=== PATIENT | female | born 1965 | race Caucasian/White ===

== ENCOUNTER 2017-09-22 08:37 | Day surgery (SDC) | payer OTHER ==
[~2017-09-22 08:37] MED LIST: CEFAZOLIN 1 GM INJ; EPHEDrine SULFATE 50 MG/5 ML SYG
[2017-09-22] MEDS ORDERED: MIDAZOLAM 1 MG/ML 2 ML INJ (11:18)
[2017-09-22] MEDS ORDERED: ROPIVACAINE 0.5 % 30 ML VIAL ×2 (11:18→11:52)
[2017-09-22] MEDS ORDERED: FENTAnyl 50 MCG/ML VIAL (11:52)
[2017-09-22] MEDS ORDERED: LIDOCAINE 2% (SDV) 5 ML INJ (12:43)
[2017-09-22] MEDS ORDERED: ROCURONIUM 50 MG INJ (12:43)
[2017-09-22] MEDS ORDERED: PROPOFOL 20 ML (12:43)
[2017-09-22] MEDS ORDERED: SUCCINYLCHOLINE CHLORIDE 100 MG/5 ML SYG IV (12:43)
[2017-09-22] MEDS ORDERED: ONDANSETRON 4 MG INJ (12:55)
[2017-09-22] MEDS ORDERED: FAMOTIDINE 20 MG INJ (12:55)
[2017-09-22] MEDS ORDERED: DEXAMETHASONE 4 MG/ML 1 ML INJ (12:55)
[2017-09-22] MEDS ORDERED: PHENYLephrine (100 MCG/ML) 5ML SYG (13:08)
[2017-09-22] MEDS ORDERED: METOPROLOL 5 MG INJ (13:25)
[2017-09-22] MEDS ORDERED: SUGAMMADEX SODIUM 200 MG/2 ML VIAL IV ×2 (14:12→14:14)
[2017-09-22] MEDS ORDERED: morphine 10 MG INJ IV (14:30)
[2017-09-22] MEDS ORDERED: HYDROCODONE/APAP (10/325) TAB PO (14:30)
[2017-09-22] MEDS ORDERED: ONDANSETRON 4 MG INJ IV (14:30)
[2017-09-22] MEDS ORDERED: HYDROCODONE/APAP (5/325) TAB PO (14:30)
[2017-09-22] MEDS: FENTAnyl 50 MCG/ML VIAL IV (14:44)
[2017-09-22] MEDS: ONDANSETRON 4 MG INJ IV (14:45)
[2017-09-22] MEDS ORDERED: EPHEDrine SULFATE 50 MG/5 ML SYG IV (15:00)
[2017-09-22] MEDS ORDERED: FENTAnyl 50 MCG/ML VIAL IV ×2 (15:00)
[2017-09-22] MEDS ORDERED: MEPERIDINE 25 MG INJ IV (15:00)
[2017-09-22] MEDS ORDERED: HYDROmorphONE 1 MG/5 ML IV SYRINGE IV ×3 (15:00)
[2017-09-22] MEDS ORDERED: OXYCODONE/ACETAMINOPHEN (5/325) TAB PO (15:00)
[2017-09-22] MEDS ORDERED: DIPHENHYDRAMINE 50 MG INJ IV (15:00)
[2017-09-22] MEDS ORDERED: PROCHLORPERAZINE 10 MG INJ IV (15:00)
[2017-09-22] MEDS ORDERED: hydrALAzine 20 MG INJ IV (15:00)
[2017-09-22] MEDS ORDERED: LABETALOL HCL 20MG INJ IV (15:00)
[2017-09-22] MEDS: OXYCODONE/ACETAMINOPHEN (5/325) TAB PO (16:11)
== END 2017-09-22 16:43 | disposition home or self-care (01) ==
LOC: SDS 08:37
DX: M75.101 Unspecified rotator cuff tear or rupture of right shoulder, not specified as traumatic (principal); M75.41 Impingement syndrome of right shoulder; E78.5 Hyperlipidemia, unspecified
CPT/HCPCS: 29826

== ENCOUNTER 2018-03-28 09:07 | Day surgery (SDC) | payer OTHER | END 2018-03-28 13:09 | disposition home or self-care (01) | LOC: GIL 09:07 | DX: R19.4 Change in bowel habit (principal); K29.30 Chronic superficial gastritis without bleeding; K64.8 Other hemorrhoids; K44.9 Diaphragmatic hernia without obstruction or gangrene | CPT/HCPCS: 43239; 88305; 88312 ==